=== PATIENT | male | born 1945 | race Caucasian/White ===

== ENCOUNTER 2020-10-24 08:42 | Emergency (ER) | payer MEDICARE, OTHER ==
[2020-10-24] MEDS ORDERED: EPINEPHrine SYRINGE 1 MG/10 ML SYRINGE ONE (09:00)
[2020-10-24] MEDS ORDERED: SODIUM BICARB ADULT 8.4% 50 MEQ/50 ML DISP.SYRIN. ONE (09:00)
[2020-10-24] MEDS ORDERED: CALCIUM CHLORIDE 1,000 MG/10 ML VIAL IV ONE (09:00)
[2020-10-24 09:22] LABS: CREATININE 2.1 mg/dL (0.7-1.3); POTASSIUM 4.2 mmol/L (3.5-5.1)
[2020-10-24] MEDS ORDERED: EPINEPHrine 5 MG in IV NORMAL SALINE 250ML 250 ML IV PRN (09:30)
[2020-10-24 09:34] LABS: ALBUMIN 2.9 g/dL (3.4-5.0); ALBUMIN/GLOBULIN RATIO 0.8 (1.0-1.7); TOTAL BILIRUBIN 0.5 mg/dL (0.2-1.0); TOTAL PROTEIN 6.5 g/dL (6.4-8.2)
[2020-10-24 09:39] LABS: BASO # 0.2 x10^3/uL (0.0-0.2); BASO % 1 % (0-3); EOS # 0.3 x10^3/uL (0.0-0.7); EOS % 2 % (0-3); HEMATOCRIT 37.8 % (39.0-53.0); HEMOGLOBIN 11.7 g/dL (13.0-17.5); LYMPH # 4.7 x10^3/uL (1.0-4.8); LYMPH % 32 % (24-48); MEAN CORPUSCULAR HEMOGLOBIN 33 pg (25-35); MEAN CORPUSCULAR HGB CONC 31 g/dL (31-37); MEAN CORPUSCULAR VOLUME 106 fL (79-100); MONO % 7 % (0-9); NEUT # 8.5 x10^3uL (1.8-7.7); NEUT % 58 % (31-73); PLATELET COUNT 121 x10^3/uL (140-400); RED BLOOD COUNT 3.57 x10^6/uL (4.30-5.70); RED CELL DISTRIBUTION WIDTH 15.3 % (11.5-14.5); WHITE BLOOD COUNT 14.7 x10^3/uL (4.0-11.0)
--- NOTE | 2020-10-24 09:47 | PHYS DOC ---
Past History Past Medical History: CHF, Diabetes, Hypertension, Other (thoracic aortic aneyrysm) General Adult EDM: Chief Complaint: cardiac arrest HPI: HPI: Patient is a 75-year-old male who was brought here by EMS from the street due to cardiac arrest. Per patient's , [place] this morning. He was complaining of chest pressure and could not breath. He was acting like he was going to pass out so his told him to casing puller. He could not get out of the car because he was so weak. He finally got out of his but felt really weak so he tried to get into the back seat of the car to lie down but he could not make it, he collapsed face down into the back seat, WAS NOT responsive. EMS was called, they found him unresponsive, no pulse. They applie d oxygen and proceeded with CPR and brought him here emergently. His said he has not been feeling well with shortness of air for a week. Upon arrival to the ER, patient was in PEA, CPR in progress. Review of Systems: Review of Systems: not able to obtain due to condition Current Medications: Current Meds: Current Medications Medications (Trade) Dose Ordered Sig/Julio Cesar Start Time Stop Time Status Last Admin Dose Admin Dopamine HCl/ Dextrose 250 ml @ As Directed STK-MED ONCE 10/24/20 09:32 10/24/20 09:32 DC Epinephrine HCl 5 mg/Sodium Chloride 255 ml @ 21.42 mls/ hr CONT PRN 10/24/20 09:30 Allergies: Allergies: Allergies Coded Allergies Type Severity Reaction Last Updated Verified Unable to Assess 10/24/20 No Physical Exam: PE: Constitutional: Well developed, well nourished,unresponsive. HENT: Normocephalic, atraumatic, bilateral external ears normal, oropharynx mo ist, no oral exudates, nose normal. [] Eyes: conjunctiva normal, no discharge. [] Neck:no JVD,TRACHEA MIDLINE. Cardiovascular:NO PULSE, PEA ON MONITOR., Lungs & Thorax:NO CREPITUS, NO SPONTANEOUS RESPIRATION. Abdomen: NONDISTENDED. Skin: PALE AND COLD. Back: ATRAUMATIC. Extremities: 2 PLUS PITTING EDEMA IN LEGS. Neurologic UNRESPONSIVE TO PAIN OR VERBAL STIMULI. Psychologic: NOT ABLE TO OBTAIN DUE TO CONDITION Current Patient Data: Labs: Laboratory Tests Test 10/24/20 08:50 10/24/20 08:55 Glucose (Fingerstick) 262 mg/dL (70-99) H White Blood Count 14.7 x10^3/uL (4.0-11.0) H Red Blood Count 3.57 x10^6/uL (4.30-5.70) L Hemoglobin 11.7 g/dL (13.0-17.5) L Hematocrit 37.8 % (39.0-53.0) L Mean Corpuscular Volume 106 fL (79-100) H Mean Corpuscular Hemoglobin 33 pg (25-35) Mean Corpuscular Hemoglobin Concent 31 g/dL (31-37) Red Cell Distribution Width 15.3 % (11.5-14.5) H Platelet Count 121 x10^3/uL (140-400) L Neutrophils (%) (Auto) 58 % (31-73) Lymphocytes (%) (Auto) 32 % (24-48) Monocytes (%) (Auto) 7 % (0-9) Eosinophils (%) (Auto) 2 % (0-3) Basophils (%) (Auto) 1 % (0-3) Neutrophils # (Auto) 8.5 x10^3uL (1.8-7.7) H Lymphocytes # (Auto) 4.7 x10^3/uL (1.0-4.8) Monocytes # (Auto) 1.0 x10^3/uL (0.0-1.1) Eosinophils # (Auto) 0.3 x10^3/uL (0.0-0.7) Basophils # (Auto) 0.2 x10^3/uL (0.0-0.2) Platelet Estimate Pending Sodium Level 144 mmol/L (136-145) Potassium Level 4.2 mmol/L (3.5-5.1) Chloride Level 106 mmol/L (98-107) Carbon Dioxide Level 16 mmol/L (21-32) L Anion Gap 22 (6-14) H Blood Urea Nitrogen 27 mg/dL (8-26) H Creatinine 2.1 mg/dL (0.7-1.3) H Estimated GFR (Cockcroft-Gault) 31.0 BUN/Creatinine Ratio 13 (6-20) Glucose Level 344 mg/dL (70-99) H Calcium Level 9.0 mg/dL (8.5-10.1) Magnesium Level 2.0 mg/dL (1.8-2.4) Total Bilirubin 0.5 mg/dL (0.2-1.0) Aspartate Amino Transferase (AST) 188 U/L (15-37) H Alanine Aminotransferase (ALT) 96 U/L (16-63) H Alkaline Phosphatase 100 U/L (46-116) Troponin I Quantitative 0.041 ng/mL (0-0.055) WB-Sxn-K-Type Natriuretic Peptide 1918 pg/mL (0-124) H Total Protein 6.5 g/dL (6.4-8.2) Albumin 2.9 g/dL (3.4-5.0) L Albumin/Globulin Ratio 0.8 (1.0-1.7) L EKG: EKG: [] Radiology/Procedures: Radiology/Procedures: [][place] [address] IMAGING REPORT Signed PATIENT: RAMON BENNETT CACCOUNT: [id number] : 1945 LOCATION: ER AGE: 75 SEX: M EXAM STATUS: REG ER ORD. PHYSICIAN: ROHAN JOHNSON DO REASON: cardiac arrest PROCEDURE: PORTABLE CHEST 1V XR CHEST 1V Clinical Indication: Reason: cardiac arrest / Spl. Instructions: / History: Comparison: None. Findings: There is endotracheal tube, tip is 3.2 cm superior to the pk. Enteric tube courses below left hemidiaphragm, tip outside of [id number]. Defibrillator pad overlies the right upper lung limiting evaluation. Patient is rotated. Upper mediastinum is prominent. Cardiac size upper limits of normal. There is elevation of right hemidiaphragm. Lungs are clear. There is no pneumothorax. No pleural effusion is appreciated. Degenerative endplate spurring of the thoracic spine. Bilateral AC arthropathy. IMPRESSION: Appropriate position of life support devices. Electronically signed by: Bernard Hernandez MD (10/24/2020 9:50 AM) [id number] DICTATED AND SIGNED BY: BERNARD HERNANDEZ MD DATE: 10/24/20 0946 CC: PCP,NO; JOHNSON,PETER T DO ~MTH0 0 Intubation Procedure: Indication: cardiac arrest, respiratory failure Consent: none, emergency consent Medications Used: None Procedure: The patient was placed flat on his back. Intubation was performed by using glidescope, ET # 7.5, secured at 24 at lip, Initial confirmation of placement included END-TIDAL CO2 DETECTOR. A chest x-ray to verify correct placement of the tube [ET X-RAY]. Complications: [COMPLICATIONS] Heart Score: C/O Chest Pain: N/A Risk Factors: Risk Factors: DM, Current or recent (<one month) smoker, HTN, HLP, family history of CAD, obesity. Risk Scores: Score 0 - 3: 2.5% MACE over next 6 weeks - Discharge Home Score 4 - 6: 20.3% MACE over next 6 weeks - Admit for Clinical Observation Score 7 - 10: 72.7% MACE over next 6 weeks - Early Invasive Strategies Course & Med Decision Making: Course & Med Decision Making Pertinent Labs and Imaging studies reviewed. (See chart for details) Patient is a 75-year-old male who was brought here by EMS from the street in cardiac arrest. Patient was resuscitated in the ER here more than 1 hour per ACLS protocol, intermittent ROSC but was not sustained. Patient was pronounced at 9:39 AM by this physician. Patient has history of hypertension, diabetic, thoracic aortic aneurysm, congestive heart failure. I suspect the cause of is cardiac in nature or thoracic aortic aneurysm dissection. Gloria Disclaimer: Gloria Disclaimer: This electronic medical record was generated, in whole or in part, using a voice recognition dictation system. Departure Departure: Impression: Primary Impression: Cardiac arrest Disposition: 20 Condition: Referrals: PCP,JAYA (PCP) ROHAN JOHNSON DO October 24, 2020 09:47
--- NOTE | 2020-10-24 09:52 | RAD ---
XR CHEST 1V Clinical Indication: Reason: cardiac arrest / Spl. Instructions: / History: Comparison: None. Findings: There is endotracheal tube, tip is 3.2 cm superior to the pk. Enteric tube courses below left hem idiaphragm, tip outside of [id number]. Defibrillator pad overlies the right upper lung limiting ev aluation. Patient is rotated. Upper mediastinum is prominent. Cardiac size upper limits of normal. There is breanne vation of right hemidiaphragm. Lungs are clear. There is no pneumothorax. No pleural effusion is appr eciated. Degenerative endplate spurring of the thoracic spine. Bilateral AC arthropathy. IMPRESSION: Appropriate position of life support devices. Electronically signed by: Bernard Hernandez MD (10/24/2020 9:50 AM) [id number]
--- NOTE | 2020-10-24 10:07 | EKG ---
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
[2020-10-24 10:14] LABS: % ATYL 2 % (0-0); % BANDS 4 % (0-9); % EOS 3 % (0-5); % LYMPHS 31 % (24-48); % MONOS 2 % (0-10); % SEGS 51 % (35-66)
[2020-10-24 10:15] LABS: PLT ESTIMATE DECREASED (ADEQUATE)
[2020-10-24 10:16] LABS: % OTHERS 7 % (0-0)
== END 2020-10-24 10:53 ==
LOC: ER 08:42
DX: I46.9 Cardiac arrest, cause unspecified (principal); I11.0 Hypertensive heart disease with heart failure; I50.9 Heart failure, unspecified; E11.9 Type 2 diabetes mellitus without complications
CPT/HCPCS: 31500; 36415; 71045; 80053; 82947; 83735; 83880; 84484; 85007; 85025; 92950; 93005; 99285; J0171